=== PATIENT | female | born 1995 | race Caucasian/White ===

== ENCOUNTER → 2020-07-12 12:08 | Outpatient (BNVA) | payer OTHER, SELFPAY | PROVIDERS: PCP Internal Medicine; Visit Provider Physician Assistant | DX: Z76.89 Persons encountering health services in other specified circumstances (principal) ==

== ENCOUNTER → 2020-07-14 08:21 | Outpatient (BNVA) | payer OTHER, SELFPAY | PROVIDERS: PCP Internal Medicine; Visit Provider Surgery | DX: Z76.89 Persons encountering health services in other specified circumstances (principal) ==

== ENCOUNTER 2020-07-16 10:53 | Outpatient (REF) | payer OTHER, SELFPAY ==
[2020-07-17 14:52] LABS: H Pylori Breath Test DETECTED (NOT DETECTED)
== END 2020-07-16 10:54 | disposition home or self-care (01) ==
LOC: HO.LNP 10:53
PROVIDERS: PCP Internal Medicine; Visit Provider Physician Assistant
DX: Z11.0 Encounter for screening for intestinal infectious diseases (principal)
CPT/HCPCS: 83013; 99211

== ENCOUNTER 2020-07-23 10:42 | Outpatient (REF) | payer OTHER, SELFPAY ==
--- NOTE | 2020-07-23 11:04 | ECG_ITS ---
Test Reason : CP Blood Pressure : / mmHG Vent. Rate : 093 BPM Atrial Rate : 093 BPM P-R Int : 164 ms QRS Dur : 086 ms QT Int : 390 ms P-R-T Axes : 043 095 -02 degrees QTc Int : 484 ms Normal sinus rhythm Rightward axis Nonspecific ST and T wave abnormality Prolonged QT Abnormal ECG No previous ECGs available Referred By: Alf Morales Electronically Signed By:DICKSON PARDO
--- NOTE | 2020-07-23 11:21 | XR_ITS ---
EXAMINATION: XR CHEST CLINICAL INFORMATION: Obesity COMPARISON: None TECHNIQUE: 2 views of the chest were obtained. FINDINGS: No significant abnormality is noted involving the heart, lungs, mediastinum, bony thorax or soft tissues. XR/XR chest 2V IMPRESSION: Unremarkable examination.
[2020-07-23 12:00] LABS: MANUAL DIFF FLAG NO
[2020-07-23 12:18] LABS: Basophils Absolute Auto 0.1 X10*3/uL (0.0-0.2); Basophils Percent Auto 0.8 % (0-2); Eosinophils Absolute Auto 0.3 X10*3/uL (0.0-0.4); Eosinophils Percent Auto 2.1 % (0-4); Hematocrit 36.7 % (37-47); Hemoglobin 11.4 g/dl (12.0-16.0); Imm Gran Abs Auto 0.11 X10*3/uL (0.00-0.03); Imm Gran Pct Auto 0.8 % (0.0-0.4); Lymphocytes Absolute Auto 2.8 X10*3/uL (1.2-4.9); Lymphocytes Percent Auto 21.8 % (20-40); Mean Corpuscular HGB Conc 31.1 g/dl (31.0-35.0); Mean Corpuscular Hemoglobin 25.5 pg (27.0-33.0); Mean Corpuscular Volume 82.1 fL (80-98); Monocytes Absolute Auto 0.6 X10*3/uL (0.1-1.2); Monocytes Percent Auto 4.9 % (2-11); Neutrophils Percent Auto 69.6 % (45-73); Platelet Count 407 X10*3/uL (160-400); Red Blood Count 4.47 X10*6/uL (4.20-5.50); Red Cell Distribution Width 17.2 % (11.0-16.0)
[2020-07-23 12:28] LABS: Alanine Aminotransferase 45 U/L (0-31); Albumin Level 5.1 g/dL (3.5-5.0); Alkaline Phosphatase 78 U/L (39-117); Anion Gap 19 (12-20); Aspartate Amino Transferase 26 U/L (5-31); Blood Urea Nitrogen 11 mg/dL (9-16); C Reactive Protein 0.83 mg/dL (< or = 0.50); Calcium 9.5 mg/dL (8.4-10.2); Carbon Dioxide 21 mmol/L (22-29); Chloride 103 mmol/L (96-108); Cholesterol 162 mg/dL; Estimated Glomerular Filt Rate > 60; Glucose Random 92 mg/dL (60-115); HDL Cholesterol 38 mg/dL; LDL Cholesterol Calculated 102 mg/dl; Potassium 4.2 mmol/l (3.3-5.1); Sodium 139 mmol/L (135-145); Total Protein 8.3 g/dL (6.5-8.0); Triglycerides 111 mg/dL
[2020-07-23 12:50] LABS: Ferritin 14 ng/mL (10-122); TSH reflex Free T4 54.64 mIU/mL (0.32-4.0); Vitamin D 25-OH Total 7.1 ng/mL (>30)
[2020-07-23 13:01] LABS: Folate 10.3 ng/mL (> or = 4.0); Vitamin B12 271 pg/mL (200-900)
[2020-07-23 13:43] LABS: Free T4 (Free Thyroxine) 0.55 ng/dL (0.71-1.85)
[2020-07-23 13:48] LABS: Estimated Average Glucose 111 mg/dL; Hemoglobin A1c % 5.5 %
[2020-07-26 16:22] LABS: Calcium (PTHI) 9.8 mg/dL (8.6-10.2); PTHI 79 pg/mL (14-64)
[2020-07-26 21:28] LABS: Zinc 109 mcg/dL (60-130)
[2020-07-27 12:42] LABS: Vitamin B1 <6 nmol/L (8-30)
[2020-07-28 01:42] LABS: Vitamin A 70 mcg/dL (38-98)
== END 2020-07-23 10:43 | disposition home or self-care (01) ==
LOC: HO.LAB 10:42
PROVIDERS: PCP Internal Medicine; Visit Provider Surgery
DX: R07.9 Chest pain, unspecified (principal); E66.01 Morbid (severe) obesity due to excess calories; E03.9 Hypothyroidism, unspecified; G47.30 Sleep apnea, unspecified
CPT/HCPCS: 36415; 71046; 80053; 80061; 82306; 82607; 82728; 82746; 83036; 83525; 83970; 84425; 84439; 84443; 84590; 84630; 85025; 86140; 93005

== ENCOUNTER 2020-08-05 09:54 | Outpatient (REF) | payer OTHER, SELFPAY | END 2020-08-05 09:55 | disposition home or self-care (01) | LOC: HO.US 09:54 | PROVIDERS: Visit Provider Surgery | DX: Z13.89 Encounter for screening for other disorder (principal) ==

== ENCOUNTER → 2020-08-06 08:14 | Outpatient (BNVA) | payer OTHER, SELFPAY | PROVIDERS: PCP Internal Medicine; Visit Provider Surgery ==

== ENCOUNTER → 2020-08-07 07:59 | Outpatient (BNVA) | payer OTHER, SELFPAY | PROVIDERS: PCP Internal Medicine; Visit Provider Surgery ==

== ENCOUNTER → 2020-08-11 08:18 | Outpatient (BNVA) | payer OTHER, SELFPAY | PROVIDERS: PCP Internal Medicine; Visit Provider Dietitian, Registered ==

== ENCOUNTER 2020-08-16 09:26 | Outpatient (REF) | payer OTHER, SELFPAY ==
--- NOTE | ~2020-08-16 | US_ITS ---
EXAMINATION: US COMPLETE ABDOMEN WITH LIVER ELASTOGRAPHY CLINICAL INFORMATION: COMPARISON: None. TECHNIQUE: Real-time imaging of the abdominal viscera. Noninvasive ultrasound liver fibrosis assessment is performed using Karissa ElastPQ point quantification shear wave elastography (pSWE) with a C5-2 MHz transducer. Multiple elastography samples are obtained. FINDINGS: PANCREAS: The head is normal appearing. The body and tail are not well visualized due to bowel gas. ABDOMINAL AORTA: The proximal, middle, and distal aortic segments are normal in caliber. INFERIOR VENA CAVA: Visualized portions are normal. LIVER: Liver echotexture is increased. Liver contour is normal. No focal liver lesion or biliary duct dilatation. The liver is enlarged. The right lobe measures 20 cm in length. The left lobe measures 12 cm in length. Portal flow is normal/hepatopedal. Shear wave liver elastography median stiffness is 1.6 m/s (reference: normal median stiffness is 1.3 m/s or less). IQR/median stiffness to assess sampling precision is 0.3 (reference: good quality data set is IQR/median stiffness of 0.15 or less). GALLBLADDER: Normal. The gallbladder is physiologically distended without evidence of stones, sludge, polyps, wall thickening or pericholecystic fluid. COMMON BILE DUCT: Normal in caliber measuring 0.5 cm in diameter. RIGHT KIDNEY: Normal. No hydronephrosis. No renal calculi or focal parenchymal lesions. The kidney measures 12.2 cm in maximum dimension. LEFT KIDNEY: Normal. No hydronephrosis. No renal calculi or focal parenchymal lesions. The kidney measures 12 cm in maximum dimension. SPLEEN: Normal. The spleen measures 10.9 cm in maximum dimension. FREE FLUID: None. US/US abdomen comp w elastography IMPRESSION: 1. Impression: Enlarged echogenic liver probably representing fatty infiltration. Limited visualization of the pancreas. 2. Liver elastography: Liver stiffness is higher than normal but not suggestive of compensated advanced chronic liver disease. REFERENCE: Society of Radiologists in Ultrasound Liver Stiffness Thresholds (2020): LIVER STIFFNESS THRESHOLDS: *Liver Stiffness equal or less than 1.3 m/s: High probability of being normal. *Liver Stiffness less than 1.7 m/s: In the absence of other known clinical signs, rules out compensated advanced chronic liver disease. *Liver Stiffness 1.7-2.1 m/s: Suggestive of compensated advanced chronic liver disease but need further test for confirmation. *Liver Stiffness over 2.1 m/s: Rules in compensated advanced chronic liver disease. *Liver Stiffness over 2.4 m/s: Suggestive of clinically significant portal hypertension. QUALITY OF DATA SET: *IQR/Median value equal or less than 0.15 implies a quality data set. *IQR/Median value over 0.15 implies a poor quality data set. SIGNIFICANT CHANGE FROM PRIOR EXAM: Significant change if liver stiffness measurement is 10% or greater from prior exam. OTHER CONSIDERATIONS: The stage of liver fibrosis may be overestimated in the setting of acute hepatitis, liver inflammation, elevated liver function tests, hepatic vascular congestion, obstructive cholestasis, non-fasting state, and infiltrative diseases such as amyloidosis and lymphoma. In some patients with NAFLD, the liver stiffness thresholds for compensated advanced chronic liver disease may be lower. In causes other than viral hepatitis and NAFLD, liver stiffness thresholds are not well established.
== END 2020-08-16 09:27 | disposition home or self-care (01) ==
LOC: HO.US 09:26
PROVIDERS: Visit Provider Surgery
DX: Z01.818 Encounter for other preprocedural examination (principal); E03.9 Hypothyroidism, unspecified; E66.01 Morbid (severe) obesity due to excess calories; K21.9 Gastro-esophageal reflux disease without esophagitis; G47.30 Sleep apnea, unspecified
CPT/HCPCS: 76705; 76981

== ENCOUNTER 2021-07-09 15:37 | Outpatient (REF) | payer OTHER, SELFPAY ==
[2021-07-09 16:01] LABS: COVID-19 Test Negative (Negative); IDNOW Serial# 9DD0AD1C
== END 2021-07-09 15:38 | disposition home or self-care (01) ==
LOC: HO.LAB 15:37
PROVIDERS: Referring Provider Internal Medicine; Visit Provider Internal Medicine
DX: Z20.822 Contact with and (suspected) exposure to COVID-19 (principal)
CPT/HCPCS: 87635

== ENCOUNTER 2021-09-24 09:00 | Emergency (ER) | payer OTHER, SELFPAY ==
[2021-09-24 09:07] VITALS: BP 147/88; PULSE 88; RESP 19; TEMP 36.6; O2SAT 98; BMI 40.3
--- NOTE | 2021-09-24 09:29 | ED.FEMALEGU ---
HPI - Female Genitourinary General Chief complaint: Urogenital-Female Stated complaint: STD check Time Seen by Provider: 09/24/21 09:14 Source: patient Mode of arrival: ambulatory Limitations: no limitations History of Present Illness HPI Narrative: 26 y/o female presents to the ER for evaluation after possible herpes exposure. She states she got a phone call from her ex-boyfriend saying he was positive for herpes. She had intercourse twice with him in the last month, once unprotected. She denies any external or painful lesions on her genitals. No vaginal discharge, dysuria. She is very anxious about it. Patient also reports intermittent burning epigastric pain that comes and goes for the last 3 days. It radiates up into her chest. She states she has a history of H.pylori in May and was treated for it a few times. Last month she had another breath test that was positive and they wanted to start her on different medications but she declined as she was having no symptoms at the time. She has not informed her GI doctor at [facility] that she is now having some reflux. She denies N/V/D, melena, BRBPR, fever or chills. MD elicited complaint: possible STD Pertinent past history: IUD Onset (ago): unknown Vaginal discharge: none Vaginal bleeding: none Exacerbating factors: none Relieving factors: none Associated symptoms: abdominal pain Treatment prior to arrival: none Sexual activity: Yes Patient : No Related Data Home Medications Medication Instructions Recorded Confirmed levothyroxine 300 mcg tablet 300 mcg PO DAILY 07/14/20 07/14/20 Previous Rx's Medication Instructions Recorded amoxicillin 500 mg tablet 1,000 mg PO BID 14 Days #56 tab 07/19/20 clarithromycin 500 mg tablet 500 mg PO BID 14 Days #28 tab 07/19/20 omeprazole 40 mg capsule,delayed 40 mg PO DAILY #14 cap 07/19/20 release cholecalciferol (vitamin D3) 50 50 mcg PO DAILY #30 cap 07/29/20 mcg (2,000 unit) capsule iron,carbonyl 65 mg-vitamin C 125 1 tab PO DAILY #30 tab 07/29/20 mg tablet,delayed release (Vitron-C) mecobalamin (vitamin B12) 1,000 1,000 mcg PO DAILY #30 tab 07/29/20 mcg chewable tablet thiamine HCl (vitamin B1) 100 mg 100 mg PO DAILY 30 Days #30 tab 07/29/20 tablet omeprazole magnesium 20 mg 40 mg PO DAILY #30 tab 09/24/21 tablet,delayed release (Prilosec OTC) Allergies Allergy/AdvReac Type Severity Reaction Status Date / Time No Known Allergies Allergy Verified 07/14/20 11:01 Review of Systems Review of Systems: Constitutional: No Fever, No Chills ENT/Mouth: No sore throat, No mouth sores or lip sores Cardiovascular: No Chest Pain, No SOB Respiratory: No Cough, No Sputum Gastrointestinal: No Nausea, No Vomiting, No Diarrhea, + abdominal Pain, No Hematochezia, No Melena Genitourinary: No Dysuria, No Urinary Frequency, No Hematuria, No vaginal discharge, No genital lesions Musculoskeletal: No joint pain, No Myalgias Skin: No Skin Lesions, No rash Neuro: No Weakness, No Numbness, No Dizziness, No Headache Psych: + Anxiety/Panic, No Depression Heme/Lymph: No Lymphadenopathy Endocrine: No Polyuria, No Polydipsia [facility] Past Medical History Medical History (Updated 09/24/21 @ 09:47 by HERMILO Ovalle) Abnormal EKG Back pain Cardiomegaly Hypothyroidism Morbid obesity Sleep apnea Surgical History Hx of total thyroidectomy Family History Family History Mother Thyroid condition Father No problems noted. Sister No problems noted. Brother No problems noted. Brother No problems noted. Social History Social History Alcohol intake: never Advance Directives: No Physical Exam Vital Signs: Vital Signs: Last Vital Signs Temp 98 F 09/24/21 09:07 Pulse 88 09/24/21 09:07 Resp 19 09/24/21 09:07 BP 147/88 H 09/24/21 09:07 Pulse Ox 98 09/24/21 09:07 BMI result Body Mass Index 40.3 Appearance: Alert. Oriented X3. No acute distress. Eyes: Pupils equal, round and reactive to light. ENT: Pharynx normal. Lips normal Neck: Normal inspection. Neck supple. CVS: Normal heart rate and rhythm. Pulses normal. Respiratory: No respiratory distress. Breath sounds normal. Abdomen: Obese, Soft and nontender. +BS x4 Genitalia: normal external inspection, no genital lesions seen Skin: Skin warm and dry. Normal skin color. Normal skin turgor. No rashes. Extremities: No lower extremity edema. Neuro: Oriented X 3. Nonfocal Course Course Course Narrative: 26 y/o female with history of H pylori s/p treatment presents to the ER with intermittent burning epigastric pain that radiates up into the chest. Symptoms may be due to refractory H.pylor vs GERD. She has a GI doctor she can follow up with for further recommendations on Sunday. Will start PPI for now until her GI doctor can evaluate her and possibly start her on 3rd or 4th line treatment for H. pylori, patient does not know what treatment she has had in the past. She is also here for possible HSV after exposure. Exam is reassuring without any lesions. She was counseled on presentation of HSV and what to do if the lesion appears. She is stable for d/c home with plan to follow up with her GI doctor and [employer]. Patient agrees with plan, all questions were answered. Discharge Plan Discharge Clinical Impression: GERD (gastroesophageal reflux disease) Patient Disposition: Home, Self-Care Instructions: Diet for Stomach Ulcers and Gastritis (ED), Gastroesophageal Reflux Disease (DC) Additional Instructions: Your exam today did not show any evidence of Herpes. It is possible that a lesion may develop in the future - this will be painful and burn. If this happens call your doctor or come back to the ER to get started on medication [facility]. Start taking the antacid medication today. Follow up with your GI doctor on Sunday. Stick to a bland diet. Avoid foods high in acid, avoid alcohol and NSAID medications like Aleve, Motrin, Advil or ibuprofen. If you develop new or worsening symptoms call 911 or come back to the ER for further evaluation. Prescriptions: New omeprazole magnesium [Prilosec OTC] 20 mg tablet,delayed release (DR/EC) 40 mg PO DAILY Qty: 30 0RF No Action amoxicillin 500 mg tablet 1,000 mg PO BID 14 Days Qty: 56 0RF clarithromycin 500 mg tablet 500 mg PO BID 14 Days Qty: 28 0RF omeprazole 40 mg capsule,delayed release(DR/EC) 40 mg PO DAILY Qty: 14 0RF mecobalamin (vitamin B12) 1,000 mcg tablet,chewable 1,000 mcg PO DAILY Qty: 30 5RF cholecalciferol (vitamin D3) 50 mcg (2,000 unit) capsule 50 mcg PO DAILY Qty: 30 5RF thiamine HCl (vitamin B1) 100 mg tablet 100 mg PO DAILY 30 Days Qty: 30 5RF Vitron-C 65 mg iron- 125 mg tablet,delayed release (DR/EC) 1 tab PO DAILY Qty: 30 5RF Rx Instructions: swallow whole; do not chew/break/dissolve/open levothyroxine 300 mcg tablet 300 mcg PO DAILY 0RF Discharge Date/Time: 09/24/21 09:57
== END 2021-09-24 09:57 | disposition home or self-care (01) ==
PROVIDERS: Emergency Provider Emergency Medicine; PCP Internal Medicine
DX: Z20.2 Contact with and (suspected) exposure to infections with a predominantly sexual mode of transmission (principal); K21.9 Gastro-esophageal reflux disease without esophagitis
CPT/HCPCS: 99283

== ENCOUNTER 2021-12-04 17:05 | Outpatient (REF) | payer OTHER, SELFPAY ==
[2021-12-04 17:58] LABS: COVID-19 Test Negative (Negative); IDNOW Serial# 16C4AD1C
== END 2021-12-04 17:06 | disposition home or self-care (01) ==
LOC: HO.LAB 17:05
PROVIDERS: Visit Provider Internal Medicine
DX: Z20.822 Contact with and (suspected) exposure to COVID-19 (principal)
CPT/HCPCS: 87635

== ENCOUNTER 2021-12-07 20:55 | Emergency (ER) | payer OTHER, SELFPAY ==
[2021-12-07 21:01] VITALS: BP 125/64; PULSE 86; RESP 18; TEMP 37.1; O2SAT 98; BMI 42.3
--- NOTE | 2021-12-07 21:16 | ED_ITS ---
HPI - Back Pain/Injury General Chief Complaint: Back Pain/Injury Stated Complaint: lower back pain Time Seen by Provider: 12/07/21 21:16 Source: patient Mode of arrival: ambulatory Limitations: no limitations History of Present Illness HPI Narrative: Patient is a 26 year old female presenting to the emergency department today with back pain. Patient states that she began having low back pain that radiated down into her legs while she was cooking dinner. Patient denies any dizziness, lightheadedness, abdominal pain, nausea, vomiting, fever, chills, blurry vision, double vision, loss of vision, chest pain, difficulty breathing, shortness of breath, night sweats, pain with urination, increased urinary frequency, increased urinary urgency, blood in her urine or stool, syncope or a near syncopal episode, recent trauma or falls, bowel incontinence, bladder incontinence, bowel retention, bladder retention, or any other complaints at this time. MD elicited complaint: back pain Onset (ago): hour(s) Timing: intermittent Severity: mild Pain scale (0-10): 4 Quality: dull Exacerbating factors: none Relieving factors: none Work related injury: No Related Data Home Medications Medication Instructions Recorded Confirmed levothyroxine 300 mcg tablet 300 mcg PO DAILY 07/14/20 07/14/20 Previous Rx's Medication Instructions Recorded amoxicillin 500 mg tablet 1,000 mg PO BID 14 days #56 tabs 07/19/20 clarithromycin 500 mg tablet 500 mg PO BID 14 days #28 tabs 07/19/20 omeprazole 40 mg capsule,delayed 40 mg PO DAILY #14 caps 07/19/20 release cholecalciferol (vitamin D3) 50 50 mcg PO DAILY #30 caps 07/29/20 mcg (2,000 unit) capsule iron,carbonyl 65 mg-vitamin C 125 1 tab PO DAILY #30 tabs 07/29/20 mg tablet,delayed release (Vitron-C) mecobalamin (vitamin B12) 1,000 1,000 mcg PO DAILY #30 tabs 07/29/20 mcg chewable tablet thiamine HCl (vitamin B1) 100 mg 100 mg PO DAILY 30 days #30 tabs 07/29/20 tablet omeprazole magnesium 20 mg 40 mg PO DAILY #30 tabs 09/24/21 tablet,delayed release (Prilosec OTC) cyclobenzaprine 10 mg tablet 10 mg PO TID PRN low back pain 7 12/07/21 days #21 tabs Allergies Allergy/AdvReac Type Severity Reaction Status Date / Time No Known Allergies Allergy Verified 07/14/20 11:01 Review of Systems Constitutional: Constitutional: Reports no additional constitutional co mplaints, Denies chills, Denies fever(s) and Denies night sweats Eyes: Eyes: Reports no additional eye complaints, Denies blurry vision, Denies change in vision, Denies diplopia, Denies eye discharge, Denies loss of vision and Denies eye pain ENT: Denies dizziness Cardiovascular: Cardiovascular: Reports no additional cardiovascular complaints, Denies chest pain, Denies lightheadedness, Denies Loss of Consciousness and Denies dyspnea Respiratory: Respiratory: Reports no additional respiratory complaints and Denies dyspnea Gastrointestinal: Gastrointestinal: Reports no additional gastrointestinal complaints, Denies abdominal pain, Denies melena, Denies hematochezia, Denies change in bowel habits and Denies change in stool character Genitourinary: Genitourinary: Denies hematuria, Denies urinary frequency, Denies dysuria, Denies urinary incontinence, Denies urinary hesitancy and Denies urinary urgency Musculoskeletal: Musculoskeletal: Reports no additional musculoskeletal complaints, Reports back pain, Denies numbness and Denies tingling Neurologic: Denies dizziness, Denies loss of vision, Denies numbness and Denies tingling Psychiatric: Psychiatric: Reports no additional psychiatric complaints Endocrine: Endocrine: Reports no additional endocrine complaints Hematologic/Lymphatic: Hematologic/Lymphatic: Reports no additional hematologic/lymphatic complaints Allergic/Immunologic: Allergic/Immunologic: Reports no additional allergic/immunologic complaints [facility] Past Medical History Attestation statement: The following information was validated with the patient. Source: old records reviewed Medical History Abnormal EKG Back pain Cardiomegaly Hypothyroidism Morbid obesity Sleep apnea Surgical History Hx of total thyroidectomy Family History Family History Mother Thyroid condition Father No problems noted. Sister No problems noted. Brother No problems noted. Brother No problems noted. Social History Social History Alcohol intake: never Advance Directives: No Advance Directives Information Provided: Yes Physical Exam Vital Signs: Vital Signs: Last Vital Signs Temp 98.8 F 12/07/21 21:01 Pulse 86 12/07/21 21:01 Resp 18 12/07/21 21:01 BP 125/64 12/07/21 21:01 Pulse Ox 98 12/07/21 21:01 BMI result Body Mass Index 42.3 Const: General: cooperative, no acute distress, alert and awake Nutritional Appearance: well nourished Orientation/consciousness: patient oriented x3 Limitations: no limitations HEENT: Head: Yes normal to inspection and Yes atraumatic Ears: hearing grossly normal bilaterally and external ears normal General nose exam: Normal external nose present, no nasal discharge noted and no epistaxis Face and sinus: Yes normal facial exam, No abrasion and No laceration Mouth: Normal oral and palatal mucosa present, no drooling and no muffled voice Eyes: General: appearance normal, both eyes and all related structures Periorbital: periorbital findings normal Eyelids: Yes eyelids normal Conjunctivae: conjunctivae normal Pupils: Equal, round and reactive pupils present EOM: EOMs intact bilaterally Neck: Neck: Yes normal visual inspection, Yes full ROM and Yes no lymphadenopathy Chest: Chest palpation & inspection: normal inspection of the chest Resp: Effort & Inspection: normal respiratory effort and able to speak in complete sentences Auscultation: clear to auscultation bilaterally Cardio: Rate: regular rate Rhythm: regular rhythm GI: Inspection: Yes normal to inspection : General: Yes no CVA tenderness Back/Spine/Pelvis: Back: no CVA tenderness Cervical Spine: normal cervical lordosis and cervical ROM normal Thoracic/Lumbar Spine: thoracic and lumbar spine normal to inspection and thoraco-lumbar ROM normal Neuro: General: patient oriented x3 and moves all extremities Cranial nerves: Yes Equal, round and reactive pupils present Cognition (Neuro): normal cognition Motor exam (neuro): 5/5 motor strength present throughout Sensory Exam: Normal double simultaneous stimulation for sensation Coordination: [id number] test normal Extrem: General: Yes normal to inspection, Yes full ROM and Yes capillary refill normal Psych: Appearance: grossly normal Mental Status: mental status grossly normal Affect: normal affect Attitude: cooperative Thought process: Normal thought process present Thought content: Normal thought content present Insight: Good insight present (Psych) MDM - Back Pain/Injury MDM Narrative Medical decision making narrative: Patient is a 26 year old female presenting to the emergency department today with back pain. Patient's physical exam was unremarkable. I explained my physical exam findings to the patient. I answered all questions asked by the patient. Patient received PO flexeril which she stated helped her symptoms significantly. I stressed the importance of the patient taking her medication as prescribed. I stressed the importance of the patient following up with her primary care provider. I stressed the importance of the patient returning to the emergency department immediately if her symptoms were to worsen or if she were to develop any dizziness, shortness of breath, difficulty breathing, chest pain, blurry vision, loss of vision, nausea, vomiting, abdominal pain, fever, chills, back pain, or any other complaints. Patient verbalized agreement and un derstanding with this treatment plan and discharge. Differential Diagnosis Differential diagnosis: Likely sciatica Medical Records Attestation: I reviewed the patient's medical records. Discharge Plan Discharge Clinical Impression: Back pain Patient Disposition: Home, Self-Care Instructions: Sciatica (ED), Lower Back Exercises (ED) Additional Instructions: Follow up with your primary care provider. Return to the emergency department immediately if your symptoms worsen or if you develop any dizziness, shortness of breath, difficulty breathing, chest pain, blurry vision, loss of vision, nausea, vomiting, abdominal pain, fever, chills, back pain, or any other complaints. Prescriptions: New cyclobenzaprine 10 mg tablet 10 mg PO TID PRN (Reason: low back pain) 7 Days Qty: 21 0RF No Action amoxicillin 500 mg tablet 1,000 mg PO BID 14 Days Qty: 56 0RF clarithromycin 500 mg tablet 500 mg PO BID 14 Days Qty: 28 0RF omeprazole 40 mg capsule,delayed release(DR/EC) 40 mg PO DAILY Qty: 14 0RF mecobalamin (vitamin B12) 1,000 mcg tablet,chewable 1,000 mcg PO DAILY Qty: 30 5RF cholecalciferol (vitamin D3) 50 mcg (2,000 unit) capsule 50 mcg PO DAILY Qty: 30 5RF thiamine HCl (vitamin B1) 100 mg tablet 100 mg PO DAILY 30 Days Qty: 30 5RF Vitron-C 65 mg iron- 125 mg tablet,delayed release (DR/EC) 1 tab PO DAILY Qty: 30 5RF Rx Instructions: swallow whole; do not chew/break/dissolve/open omeprazole magnesium [Prilosec OTC] 20 mg tablet,delayed release (DR/EC) 40 mg PO DAILY Qty: 30 0RF levothyroxine 300 mcg tablet 300 mcg PO DAILY Referrals: [facility] [place] [place] [facility] [Provider Group] (Call to establish with a primary care provider. If you are already established with one, please follow up with their office. ) [facility] [place] Primary [facility], [facility] [Provider Group] (Call to establish with a primary care provider. If you are already established with one, please follow up with their office. ) [facility] [place] [facility] [Provider Group] (Call to establish with a primary care provider. If you are already established with one, please follow up with their office. ) [facility] [place] [facility] [Provider Group] (Follow up with an orthopedist if your pain persists for longer than 7 days. ) Interventions: ED Discharge Assessment Last Done: 12/07/21 21:57 Discharge Date/Time: 12/07/21 21:58 Print Language: Vincentian
[2021-12-07] MEDS: Cyclobenzaprine HCl 10 MG TABLET PO (21:39)
== END 2021-12-07 21:58 | disposition home or self-care (01) ==
PROVIDERS: Emergency Provider Internal Medicine
DX: M54.50 Low back pain, unspecified (principal)
CPT/HCPCS: 99283

== ENCOUNTER 2022-01-25 11:50 | Emergency (ER) | payer OTHER, SELFPAY ==
--- NOTE | ~2022-01-25 | XR_ITS ---
EXAMINATION: XR SHOULDER, LEFT CLINICAL INFORMATION: Left shoulder pain status post fall. COMPARISON: None TECHNIQUE: Three views of the left shoulder. FINDINGS: The bones and soft tissues are normal. No fracture. Glenohumeral and acromioclavicular alignment is anatomic with normal joint space. No abnormal soft tissue calcifications. XR/XR shoulder LT min 2V IMPRESSION: Unremarkable left shoulder.
[2022-01-25 12:13] VITALS: BP 142/76; PULSE 88; RESP 18; TEMP 36.7; O2SAT 97; BMI 44.0
[2022-01-25 12:26] LABS: MANUAL DIFF FLAG NO
[2022-01-25 12:28] LABS: Basophils Absolute Auto 0.1 X10*3/uL (0.0-0.2); Basophils Percent Auto 0.5 % (0-2); Eosinophils Absolute Auto 0.1 X10*3/uL (0.0-0.4); Eosinophils Percent Auto 1.1 % (0-4); Hematocrit 35.6 % (37.0-47.0); Hemoglobin 11.2 g/dl (12.0-16.0); Imm Gran Abs Auto 0.04 X10*3/uL (0.00-0.03); Imm Gran Pct Auto 0.3 % (0.0-0.4); Lymphocytes Absolute Auto 2.5 X10*3/uL (1.2-4.9); Lymphocytes Percent Auto 21.6 % (20-40); Mean Corpuscular HGB Conc 31.5 g/dl (31.0-35.0); Mean Corpuscular Hemoglobin 24.3 pg (27.0-33.0); Mean Corpuscular Volume 77.2 fL (80.0-98.0); Mean Platelet Volume 11.6 fL (9.4-12.3); Monocytes Absolute Auto 0.6 X10*3/uL (0.1-1.2); Monocytes Percent Auto 5.3 % (2-11); Neutrophils Absolute Auto 8.3 x10*3/uL (2.0-8.3); Neutrophils Percent Auto 71.2 % (45-73); Platelet Count 349 X10*3/uL (160-400); Red Blood Count 4.61 X10*6/uL (4.20-5.50); Red Cell Distribution Width 17.6 % (11.0-16.0); White Blood Count 11.7 X10*3/uL (4.8-10.8)
[2022-01-25 12:44] LABS: Anion Gap 11 (12-20); Blood Urea Nitrogen 12 mg/dL (9-16); Calcium 8.9 mg/dL (8.4-10.2); Carbon Dioxide 22 mmol/L (22-29); Chloride 110 mmol/L (96-108); Creatinine Clr Calc Pharmacy 159.8; Estimated Glomerular Filt Rate > 60; Glucose Random 109 mg/dL (60-115); Potassium 3.7 mmol/L (3.3-5.1); Sodium 139 mmol/L (135-145)
== END 2022-01-25 16:21 | disposition left against medical advice (07) ==
PROVIDERS: Emergency Provider Emergency Medicine; PCP Internal Medicine
DX: S49.92XA Unspecified injury of left shoulder and upper arm, initial encounter (principal); W10.9XXA Fall (on) (from) unspecified stairs and steps, initial encounter; R19.5 Other fecal abnormalities; E66.01 Morbid (severe) obesity due to excess calories; Z68.41 Body mass index [BMI] 40.0-44.9, adult; Y93.9 Activity, unspecified; Y92.9 Unspecified place or not applicable; Y99.9 Unspecified external cause status
CPT/HCPCS: 36415; 73030; 80048; 85025; 99281; 99283

== ENCOUNTER 2022-05-16 03:14 | Emergency (ER) | payer OTHER, SELFPAY ==
[2022-05-16 03:22] VITALS: BP 144/73; PULSE 78; RESP 19; TEMP 36.7; O2SAT 98; BMI 41.9
[2022-05-16 03:34] LABS: MANUAL DIFF FLAG NO
[2022-05-16 03:40] LABS: Basophils Absolute Auto 0.1 X10*3/uL (0.0-0.2); Basophils Percent Auto 0.6 % (0-2); Eosinophils Absolute Auto 0.3 X10*3/uL (0.0-0.4); Hematocrit 35.9 % (37.0-47.0); Hemoglobin 11.4 g/dl (12.0-16.0); Imm Gran Abs Auto 0.04 X10*3/uL (0.00-0.03); Imm Gran Pct Auto 0.3 % (0.0-0.4); Lymphocytes Percent Auto 31.3 % (20-40); Mean Corpuscular HGB Conc 31.8 g/dl (31.0-35.0); Mean Corpuscular Hemoglobin 24.7 pg (27.0-33.0); Mean Corpuscular Volume 77.9 fL (80.0-98.0); Mean Platelet Volume 11.2 fL (9.4-12.3); Monocytes Absolute Auto 0.9 X10*3/uL (0.1-1.2); Monocytes Percent Auto 7.3 % (2-11); Neutrophils Absolute Auto 7.5 x10*3/uL (2.0-8.3); Neutrophils Percent Auto 58.5 % (45-73); Platelet Count 428 X10*3/uL (160-400); Red Blood Count 4.61 X10*6/uL (4.20-5.50); Red Cell Distribution Width 14.9 % (11.0-16.0); White Blood Count 12.8 X10*3/uL (4.8-10.8)
[2022-05-16 03:46] LABS: Appearance Urine Clear; Color Urine Yellow; Glucose Urine UA Negative (Negative); Leukocyte Esterase Urine Trace (Negative); Nitrite Urine Negative (Negative); Specific Gravity - Urine >= 1.030 (1.005-1.025); UMIC TRIGGER UACC YES; Urine Blood Negative (Negative); Urine Ketones Trace mg/dL (Negative); Urine Protein Trace mg/dL (Neg-Trace)
[2022-05-16 03:48] LABS: Bacteria Urine 1+ (None Seen); Hyaline Casts Urine 0-2 /LPF (0-2); RBC Urine 0-2 /HPF (0-2); UACC Culture Trigger YES
[2022-05-16 03:55] LABS: UPreg QC Valid YES; Urine Pregnancy NEGATIVE (NEGATIVE)
[2022-05-16 04:13] LABS: Alanine Aminotransferase 31 U/L (0-31); Alkaline Phosphatase 89 U/L (39-117); Anion Gap 11 (12-20); Aspartate Amino Transferase 18 U/L (5-31); Bilirubin Total 0.4 mg/dL (0.0-1.0); Blood Urea Nitrogen 16 mg/dL (9-16); Calcium 9.5 mg/dL (8.4-10.2); Carbon Dioxide 23 mmol/L (22-29); Chloride 110 mmol/L (96-108); Creatinine Clr Calc Pharmacy 160.9; Estimated Glomerular Filt Rate > 60; Glucose Random 105 mg/dL (60-115); Sodium 140 mmol/L (135-145); Thyroid Stimulating Hormone 0.11 uIU/mL (0.32-4.0); Total Protein 6.9 g/dL (6.5-8.0)
[2022-05-16] MEDS: Ondansetron ODT 4 MG TAB.RAPDIS TRANSLINGU (06:08)
[2022-05-16 06:21] VITALS: BP 125/42; PULSE 66; RESP 16; TEMP 36.6; O2SAT 97
--- NOTE | 2022-05-16 06:39 | ED.NAVMDI ---
HPI - Nausea/Vomiting/Diarrhea General Chief complaint: Dizziness Stated complaint: dizzy, throwing up, employee Time Seen by Provider: 05/16/22 05:50 Source: patient History of Present Illness HPI Narrative: 27-year-old female with past medical history sleep apnea presents to the emergency department today with nausea. The patient states has been going on for approximately 24 hours. She does not know any exacerbating or relieving symptoms. She denies fevers or chills. The patient does state that she had her last period August, but she has an IUD in place. MD elicited complaint: nausea Associated nausea: Yes Associated abdominal pain: No Related Data Home Medications Medication Instructions Recorded Confirmed levothyroxine 300 mcg tablet 300 mcg PO DAILY 07/14/20 07/14/20 Previous Rx's Medication Instructions Recorded amoxicillin 500 mg tablet 1,000 mg PO BID 14 days #56 tabs 07/19/20 clarithromycin 500 mg tablet 500 mg PO BID 14 days #28 tabs 07/19/20 omeprazole 40 mg capsule,delayed 40 mg PO DAILY #14 caps 07/19/20 release cholecalciferol (vitamin D3) 50 50 mcg PO DAILY #30 caps 07/29/20 mcg (2,000 unit) capsule iron,carbonyl 65 mg-vitamin C 125 1 tab PO DAILY #30 tabs 07/29/20 mg tablet,delayed release (Vitron-C) mecobalamin (vitamin B12) 1,000 1,000 mcg PO DAILY #30 tabs 07/29/20 mcg chewable tablet thiamine HCl (vitamin B1) 100 mg 100 mg PO DAILY 30 days #30 tabs 07/29/20 tablet omeprazole magnesium 20 mg 40 mg PO DAILY #30 tabs 09/24/21 tablet,delayed release (Prilosec OTC) cyclobenzaprine 10 mg tablet 10 mg PO TID PRN low back pain 7 12/07/21 days #21 tabs ondansetron 4 mg disintegrating 4 mg PO Q6H PRN nausea and 05/16/22 tablet vomiting #10 tabs Allergies Allergy/AdvReac Type Severity Reaction Status Date / Time No Known Allergies Allergy Verified 01/25/22 12:13 Review of Systems Constitutional: Constitutional: Reports as per HPI, Denies chills and Denies fever(s) Eyes: Eyes: Denies change in vision and Denies diplopia ENT: Reports system reviewed and no additional complaints, except as documented and Denies dizziness Cardiovascular: Cardiovascular: Denies syncope, Denies lightheadedness and Denies Loss of Consciousness Respiratory: Respiratory: Reports no additional respiratory complaints Gastrointestinal: Gastrointestinal: Denies diarrhea, Reports nausea, Denies vomiting and Denies hematemesis Genitourinary: Genitourinary: Denies difficulty voiding, Denies dyspareunia, Denies dysuria and Denies urinary hesitancy Musculoskeletal: Musculoskeletal: Reports no additional musculoskeletal complaints Integumentary/Breasts: Skin/Breast: Denies change in breast shape Neurologic: Reports system reviewed and no additional complaints, except as documented, Denies Abnormal speech present, Denies dizziness and Denies syncope PMFSH Past Medical History Medical History Abnormal EKG Back pain Cardiomegaly Hypothyroidism Morbid obesity Sleep apnea Surgical History Hx of total thyroidectomy Family History Family History Mother Thyroid condition Father No problems noted. Sister No problems noted. Brother No problems noted. Brother No problems noted. Social History Social History Alcohol intake: never Advance Directives: No Advance Directives Information Provided: Yes Physical Exam Vital Signs: Vital Signs: Last Vital Signs Temp 97.9 F 05/16/22 06:21 Pulse 66 05/16/22 06:21 Resp 16 05/16/22 06:21 BP 125/42 L 05/16/22 06:21 Pulse Ox 97 05/16/22 06:21 O2 Del Method 05/16/22 06:21 BMI result Body Mass Index 41.9 Normal vital signs Const: General: cooperative Nutritional Appearance: obese Orientation/consciousness: patient oriented x3 HEENT: Head: Yes normocephalic and Yes atraumatic Ears: hearing grossly normal bilaterally and external ears normal General nose exam: Normal external nose present Face and sinus: Yes normal facial exam Eyes: Conjunctivae: conjunctivae normal Sclerae: sclerae normal EOM: EOMs intact bilaterally Direct Ophthalmoscopy: normal light reflex Neck: Neck: Yes normal visual inspection and Yes full ROM Chest: Chest palpation & inspection: normal inspection of the chest Resp: Effort & Inspection: normal respiratory effort, no cough and no stridor Auscultation: clear to auscultation bilaterally Cardio: Rate: regular rate Rhythm: regular rhythm GI: Inspection: Yes normal to inspection and No distended Palpation (GI): nontender Skin: General skin exam: no rashes or lesions noted, no jaundice and no purpura Neuro: General: patient oriented x3 Cranial nerves: Yes CN's II-XII intact bilaterally Cognition (Neuro): normal cognition Speech: No Abnormal speech present Gait exam (Neuro): gait abnormal Extrem: General: Yes normal to inspection and Yes full ROM Medications Administered Discontinued Medications Generic Name Dose Route Start Last Admin Trade Name Wellingtonq PRN Reason Stop Dose Admin Ondansetron HCl 4 mg 05/16/22 05:59 05/16/22 06:08 Ondansetron Odt 4 Mg Tab.Rapdis TRANSLINGU 05/16/22 06:00 4 mg ONCE ONE Administration MDM - Nausea/Vomiting/Diarrhea MDM Narrative Medical decision making narrative: 27-year-old female with no significant past medical history presented with nausea. Patient had laboratory studies all of which were normal including a urinalysis and urine test. Patient was given Zofran orally with good effect. She will be discharged home with a prescription for Zofran and follow up with her primary care doctor. Lab Data Attestation: I reviewed the patient's lab results. Result diagrams: 05/16/22 03:30 05/16/22 03:30 Labs: Lab Results 05/16/22 05/16/22 05/16/22 Range/Units 03:30 03:30 03:38 WBC 12.8 H (4.8-10.8) X10*3/uL RBC 4.61 (4.20-5.50) X10*6/uL Hgb 11.4 L (12.0-16.0) g/dl Hct 35.9 L (37.0-47.0) % MCV 77.9 L (80.0-98.0) fL MCH 24.7 L (27.0-33.0) pg MCHC 31.8 (31.0-35.0) g/dl RDW 14.9 (11.0-16.0) % Plt Count 428 H (160-400) X10*3/uL MPV 11.2 (9.4-12.3) fL Immature Gran % (Auto) 0.3 (0.0-0.4) % Neut % (Auto) 58.5 (45-73) % Lymph % (Auto) 31.3 (20-40) % [place] % (Auto) 7.3 (2-11) % Eos % (Auto) 2.0 (0-4) % Baso % (Auto) 0.6 (0-2) % Lymph # (Auto) 4.0 (1.2-4.9) X10*3/uL [place] # (Auto) 0.9 (0.1-1.2) X10*3/uL Eos # (Auto) 0.3 (0.0-0.4) X10*3/uL Baso # (Auto) 0.1 (0.0-0.2) X10*3/uL Abs Immat Gran (auto) 0.04 H (0.00-0.03) X10*3/uL Absolute Neuts (auto) 7.5 (2.0-8.3) x10*3/uL Absolute Nucleated RBC 0.000 (0.0-0.012) X10*3/uL Nucleated RBC % (auto) 0.0 (0.0-0.2) /100WBC Sodium 140 (135-145) mmol/L Potassium 4.0 (3.3-5.1) mmol/L Chloride 110 H (96-108) mmol/L Carbon Dioxide 23 (22-29) mmol/L Anion Gap 11 L (12-20) BUN 16 (9-16) mg/dL Creatinine 0.68 (0.5-1.4) mg/dL Estim Creat Clear Calc 160.9 Estimated GFR > 60 Random Glucose 105 (60-115) mg/dL Calcium 9.5 D (8.4-10.2) mg/dL Total Bilirubin 0.4 (0.0-1.0) mg/dL AST 18 (5-31) U/L ALT 31 (0-31) U/L Alkaline Phosphatase 89 (39-117) U/L Total Protein 6.9 (6.5-8.0) g/dL Albumin 4.0 (3.5-5.0) g/dL TSH 0.11 L (0.32-4.0) uIU/mL Urine Color Yellow Urine Appearance Clear Urine pH 6.0 (5.0-9.0) Ur Specific [place] >= 1.030 H (1.005-1.025) Urine Protein Trace (Neg-Trace) mg/dL Urine Glucose (UA) Negative (Negative) mg/dL Urine Ketones Trace (Negative) mg/dL Urine Blood Negative (Negative) Urine Nitrite Negative (Negative) Ur Leukocyte Esterase Trace H (Negative) Urine RBC 0-2 (0-2) /HPF Urine WBC 6-10 H (0-5) /HPF Ur Squamous Epith Cells 6-10 (0-2) /HPF Urine Bacteria 1+ (None Seen) Hyaline Casts 0-2 (0-2) /LPF Urine Test (NEGATIVE) 05/16/22 Range/Units 03:38 WBC (4.8-10.8) X10*3/uL RBC (4.20-5.50) X10*6/uL Hgb (12.0-16.0) g/dl Hct (37.0-47.0) % MCV (80.0-98.0) fL MCH (27.0-33.0) pg MCHC (31.0-35.0) g/dl RDW (11.0-16.0) % Plt Count (160-400) X10*3/uL MPV (9.4-12.3) fL Immature Gran % (Auto) (0.0-0.4) % Neut % (Auto) (45-73) % Lymph % (Auto) (20-40) % [place] % (Auto) (2-11) % Eos % (Auto) (0-4) % Baso % (Auto) (0-2) % Lymph # (Auto) (1.2-4.9) X10*3/uL [place] # (Auto) (0.1-1.2) X10*3/uL Eos # (Auto) (0.0-0.4) X10*3/uL Baso # (Auto) (0.0-0.2) X10*3/uL Abs Immat Gran (auto) (0.00-0.03) X10*3/uL Absolute Neuts (auto) (2.0-8.3) x10*3/uL Absolute Nucleated RBC (0.0-0.012) X10*3/uL Nucleated RBC % (auto) (0.0-0.2) /100WBC Sodium (135-145) mmol/L Potassium (3.3-5.1) mmol/L Chloride (96-108) mmol/L Carbon Dioxide (22-29) mmol/L Anion Gap (12-20) BUN (9-16) mg/dL Creatinine (0.5-1.4) mg/dL Estim Creat Clear Calc Estimated GFR Random Glucose (60-115) mg/dL Calcium (8.4-10.2) mg/dL Total Bilirubin (0.0-1.0) mg/dL AST (5-31) U/L ALT (0-31) U/L Alkaline Phosphatase (39-117) U/L Total Protein (6.5-8.0) g/dL Albumin (3.5-5.0) g/dL TSH (0.32-4.0) uIU/mL Urine Color Urine Appearance Urine pH (5.0-9.0) Ur Specific [place] (1.005-1.025) Urine Protein (Neg-Trace) mg/dL Urine Glucose (UA) (Negative) mg/dL Urine Ketones (Negative) mg/dL Urine Blood (Negative) Urine Nitrite (Negative) Ur Leukocyte Esterase (Negative) Urine RBC (0-2) /HPF Urine WBC (0-5) /HPF Ur Squamous Epith Cells (0-2) /HPF Urine Bacteria (None Seen) Hyaline Casts (0-2) /LPF Urine Test NEGATIVE (NEGATIVE) Discharge Plan Discharge Clinical Impression: Nausea & vomiting Patient Disposition: Home, Self-Care Prescriptions: New ondansetron 4 mg tablet,disintegrating 4 mg PO Q6H PRN (Reason: nausea and vomiting) Qty: 10 0RF No Action amoxicillin 500 mg tablet 1,000 mg PO BID 14 Days Qty: 56 0RF clarithromycin 500 mg tablet 500 mg PO BID 14 Days Qty: 28 0RF omeprazole 40 mg capsule,delayed release(DR/EC) 40 mg PO DAILY Qty: 14 0RF mecobalamin (vitamin B12) 1,000 mcg tablet,chewable 1,000 mcg PO DAILY Qty: 30 5RF cholecalciferol (vitamin D3) 50 mcg (2,000 unit) capsule 50 mcg PO DAILY Qty: 30 5RF thiamine HCl (vitamin B1) 100 mg tablet 100 mg PO DAILY 30 Days Qty: 30 5RF Vitron-C 65 mg iron- 125 mg tablet,delayed release (DR/EC) 1 tab PO DAILY Qty: 30 5RF Rx Instructions: swallow whole; do not chew/break/dissolve/open cyclobenzaprine 10 mg tablet 10 mg PO TID PRN (Reason: low back pain) 7 Days Qty: 21 0RF omeprazole magnesium [Prilosec OTC] 20 mg tablet,delayed release (DR/EC) 40 mg PO DAILY Qty: 30 0RF levothyroxine 300 mcg tablet 300 mcg PO DAILY Interventions: ED Discharge Assessment Last Done: 05/16/22 06:31 Discharge Date/Time: 05/16/22 06:31
== END 2022-05-16 06:31 | disposition home or self-care (01) ==
PROVIDERS: Emergency Provider Emergency Medicine; PCP Internal Medicine
DX: R42 Dizziness and giddiness (principal); R11.2 Nausea with vomiting, unspecified; Z79.899 Other long term (current) drug therapy
CPT/HCPCS: 36415; 80053; 81001; 81025; 84443; 85025; 87086; 99283